=== PATIENT | female | born 1950 | race Caucasian/White ===

== ENCOUNTER → 2019-04-07 | Outpatient (CLI) | payer MEDICARE | END | disposition home or self-care (01) | LOC: CFH 15:11 | PROVIDERS: ATTEND Nurse Practitioner | DX: Z12.31 Encounter for screening mammogram for malignant neoplasm of breast (principal) | CPT/HCPCS: 77063; 77067 ==

== ENCOUNTER 2020-01-01 13:06 | Outpatient (CLI) | payer MEDICARE | END 2020-01-01 23:59 | disposition home or self-care (01) | LOC: CVU 13:06 | PROVIDERS: ATTEND Family Medicine | DX: I10 Essential (primary) hypertension (principal); E78.2 Mixed hyperlipidemia; R25.2 Cramp and spasm | CPT/HCPCS: 93922 ==

== ENCOUNTER 2020-04-12 08:23 | Outpatient (CLI) | payer MEDICARE | END 2020-04-12 23:59 | disposition home or self-care (01) | LOC: CFH 08:23 | PROVIDERS: ATTEND Family Medicine | DX: Z12.31 Encounter for screening mammogram for malignant neoplasm of breast (principal); M81.0 Age-related osteoporosis without current pathological fracture; M85.88 Other specified disorders of bone density and structure, other site | CPT/HCPCS: 77063; 77067; 77080 ==